=== PATIENT | male | born 1965 | race Caucasian/White ===

== ENCOUNTER 2017-02-10 14:54 | Emergency (ER) | payer BC ==
[2017-02-10 15:07] VITALS: BP 132/64
--- NOTE | 2017-02-10 15:24 | UC ---
Knee Pain HPI - History of Current Complaint Chief Complaint: UCLowerExtremity Stated Complaint: RIGHT KNEE PAIN Time Seen by Provider: 02/10/17 15:04 Hx Obtained From: Patient Onset/Duration: Gradual Onset - last 2-3 days right knee pain after left knee pain last week., Worse Since - today with more difficulty walking. Severity Initially: Mild Severity Currently: Moderate Character: Aching Aggravating Factor(s): Movement, Weight Bearing, Prolonged Standing Alleviating Factor(s): Rest Associated Signs And Symptoms: Positive: Swelling. Negative: Bruising, Fever, Weakness Able to Bear Weight: Yes - Risk Factors Septic Arthritis Risk Factor: Negative Gout Risk Factor: Age ^ 39 - Allergies/Home Medications Allergies/Adverse Reactions: Allergies Allergy/AdvReac Type Severity Reaction Status Date / Time No Known Allergies Allergy Verified 02/10/17 15:07 PMH/Surg Hx/FS Hx/Imm Hx Cardiovascular History: Hypertension Respiratory History: Asthma - Surgical History Surgical History: Yes Surgery Procedure, Year, and Place: hernia repair 2014 - Family History Known Family History: Positive: Cardiac Disease, Diabetes, Respiratory Disease Negative: Hypertension - Social History Occupation: Employed Full-time Lives: With Family Alcohol Use: None Substance Use Type: None Smoking Status (MU): Never Smoked Tobacco Have You Smoked in the Last Year: No Review of Systems Skin: Rash - psoriasis Musculoskeletal: Arthralgia - right knee with swelling. All Other Systems Reviewed And Are Negative: Yes Physical Exam Triage Information Reviewed: Yes Appearance: Well-Appearing, No Pain Distress - except antalgic gait., Obese Vital Signs: Initial Vital Signs Temp 98 F 02/10/17 14:59 Pulse 100 02/10/17 14:59 Resp 14 02/10/17 14:59 BP 132/64 02/10/17 14:59 Pulse Ox 97 02/10/17 14:59 Vital Signs Reviewed: Yes Eyes: Positive: Conjunctiva Clear Neck exam: Normal Respiratory Exam: Normal Cardiovascular Exam: Normal Musculoskeletal: Positive: ROM Limited @ - Right knee., Other: - Right knee with effusion, warm compared to left. Neurological Exam: Normal Psychological Exam: Normal Skin: Positive: rashes - Diffuse severe psoriasis Knee Pain Course/Dx - Differential Dx/Diagnosis Differential Diagnosis/HQI/PQRI: Gout, Infection, Sprain, Strain, Tendonitis Provider Diagnoses: Acute Right knee pain. Discharge - Discharge Plan Condition: Stable Disposition: HOME Prescriptions: Naproxen [Naproxen 500 mg] 500 mg PO BID PRN #60 tab PRN Reason: Pain Patient Education Materials: Arthritis (ED), Lyme Disease (ED), Gout (ED) Referrals: Staci Walsh PA [Primary Care Provider] - Eric Echevarria MD [Medical Doctor] - If Needed (for a cortisone injection.) Additional Instructions: If the Lyme test is negative I would recommend getting a cortisone injection. You can call you primary doctor to see if they do it or see Dr. Echevarria
[2017-02-11 11:32] LABS: C Reactive Protein 177.51 mg/L (< 5.00); Uric Acid 9.3 mg/dL (4.4-7.6)
--- NOTE | 2017-02-12 09:31 | UC ---
Progress - Progress Note Progress Note: notify pt of increased UA and CRP both could be due to gout should f/u with his PMD as directed
[2017-02-12 18:43] LABS: Cyclic Citrullinated Pept IgG <15.6 U
--- NOTE | 2017-02-13 07:21 | UC ---
General HPI - HPI Summary HPI Summary: lyme testing thus far neg. repeat needed in a few weeks to confirm. pt can f/u with pcp or here for repeat testing. - History of Current Complaint Chief Complaint: UCLowerExtremity Stated Complaint: RIGHT KNEE PAIN Time Seen by Provider: 02/10/17 15:04 Hx Obtained From: Patient Onset/Duration: Gradual Onset - last 2-3 days right knee pain after left knee pain last week., Worse Since - today with more difficulty walking. Pain Intensity: 6 - Allergy/Home Medications Allergies/Adverse Reactions: Allergies Allergy/AdvReac Type Severity Reaction Status Date / Time No Known Allergies Allergy Verified 02/10/17 15:07 PMH/Surg Hx/FS Hx/Imm Hx Cardiovascular History: Hypertension Respiratory History: Asthma - Surgical History Surgical History: Yes Surgery Procedure, Year, and Place: hernia repair 2014 - Family History Known Family History: Positive: Cardiac Disease, Diabetes, Respiratory Disease Negative: Hypertension - Social History Occupation: Employed Full-time Lives: With Family Alcohol Use: None Substance Use Type: None Smoking Status (MU): Never Smoked Tobacco Have You Smoked in the Last Year: No Review of Systems Skin: Rash - psoriasis Musculoskeletal: Arthralgia - right knee with swelling. All Other Systems Reviewed And Are Negative: Yes Physical Exam Triage Information Reviewed: Yes Appearance: Well-Appearing, No Pain Distress - except antalgic gait., Obese Vital Signs: Initial Vital Signs Temp 98 F 02/10/17 14:59 Pulse 100 02/10/17 14:59 Resp 14 02/10/17 14:59 BP 132/64 02/10/17 14:59 Pulse Ox 97 02/10/17 14:59 Vital Signs Reviewed: Yes Eyes: Positive: Conjunctiva Clear Neck exam: Normal Respiratory Exam: Normal Cardiovascular Exam: Normal Musculoskeletal: Positive: ROM Limited @ - Right knee., Other: - Right knee with effusion, warm compared to left. Neurological Exam: Normal Psychological Exam: Normal Skin: Positive: rashes - Diffuse severe psoriasis Course/Dx - Differential Dx - Multi-Symptom Provider Diagnoses: possible lyme disease. Discharge - Discharge Plan Condition: Stable Disposition: HOME Prescriptions: Naproxen [Naproxen 500 mg] 500 mg PO BID PRN #60 tab PRN Reason: Pain Patient Education Materials: Lyme Disease (ED), Gout (ED), Arthritis (ED) Referrals: Eric Echevarria MD [Medical Doctor] - If Needed (for a cortisone injection.) Staci Walsh PA [Primary Care Provider] - Additional Instructions: If the Lyme test is negative I would recommend getting a cortisone injection. You can call you primary doctor to see if they do it or see Dr. Echevarria
== END 2017-02-10 15:52 | disposition home or self-care (01) ==
LOC: UCCORT 14:54
DX: M25.561 Pain in right knee (principal); M25.461 Effusion, right knee; L40.9 Psoriasis, unspecified; I10 Essential (primary) hypertension; J45.909 Unspecified asthma, uncomplicated; E66.9 Obesity, unspecified
CPT/HCPCS: 36415; 84550; 86038; 86140; 86200; 86618; 99212; G0463